=== PATIENT | female | born 1995 | race Hispanic/Latino ===

== ENCOUNTER → 2018-05-30 | Outpatient (CLI) | payer OTHER ==
--- NOTE | 2018-05-30 18:02 | Diagnostic Imaging Report ---
EXAMINATION: Thyroid ultrasound. CLINICAL HISTORY: Thyroid enlargement COMPARISON: None. . DISCUSSION: Transverse and longitudinal images of the thyroid were obtained utilizing grayscale and color Doppler modalities. The right thyroid lobe measures 4.4 x 1.1 x 1.8 cm and shows normal echogenicity. No nodules are seen. The left thyroid lobe measures 4.3 x 1 x 1.6 cm and shows normal echogenicity. A 0.8 cm solid isoechoic nodule inferior thyroid gland which is wider than tall, smooth borders, and no calcifications. TR 3. The thyroid isthmus measures 0.1 cm and shows normal echogenicity. No nodules are seen. There is no adenopathy. IMPRESSION: Normal-sized thyroid gland. 0.8 cm left inferior thyroid nodule. No follow-up needed. Signed by: Dr. Uzair Kelly M.D. on 05/30/2018 5:58 PM
== END ==
LOC: US 15:51
PROVIDERS: ATTEND Family Medicine
DX: E04.9 Nontoxic goiter, unspecified (principal)
CPT/HCPCS: 76536